=== PATIENT | male | born 1970 | race Caucasian/White ===

== ENCOUNTER 2019-10-09 16:29 | Emergency (ER) | payer MEDICAID ==
[~2019-10-09] VITALS: Ht 172.7 cm; Wt 102.7 kg
--- NOTE | 2019-10-09 17:49 | NUR ---
PT. IS A & O X 4 WITH A GCS OF 15. PT. HAS C/O BILAT LOWER EXTREMITY CELLULITIS ONSET X 10 DAYS AGO. PT. HAS BILAT WEEPING WOUNDS ON BOTH LEGS DRAINING PURULENT DRAINAGE. PT.'S LUNGS ARE CTA. MM ARE PINK AND MOIST WITH PULSES +2 THROUGHOUT. PT.'S ABD. IS SOFT AND ROUND WITH BS + X 4 QUADS. PT. IS AMBULATORY. CAP REFILL IS BRISK, LESS THAN 3 SECONDS. PT. CMS CHECKS ARE INTACT TO BOTH FEET. IV ACCESS ESTABLISHED AND THE PLAN OF CARE WAS DISCUSSED WITH THE PT.
[2019-10-09] MEDS ORDERED: SODIUM CHLORIDE FLUSH 10ML SYR IVF ONE (18:00)
[2019-10-09] MEDS ORDERED: SODIUM CHLORIDE 0.9% 1,000ML IVBOLUS ONE (18:00)
[2019-10-09] MEDS ORDERED: ONDANSETRON 2MG/ML, 2ML IVPush ONE (18:30)
[2019-10-09] MEDS ORDERED: MORPHINE SULFATE 4 MG/ML, 1ML IVPush PRN (18:30)
[2019-10-09] MEDS ORDERED: ONDANSETRON 2MG/ML, 2ML ONE (18:39)
[2019-10-09 18:40] LABS: ALBUMIN 2.3 g/dL (3.4-5.0); ANION GAP 7 mmol/L (5-15); CALCIUM 8.1 mg/dL (8.5-10.1); CHLORIDE 108 mmol/L (98-107); CREATININE 0.92 mg/dL (0.7-1.3)
[2019-10-09] MEDS ORDERED: MORPHINE SULFATE 4 MG/ML, 1ML ONE (18:40)
[2019-10-09 18:44] LABS: BASOPHILS # (AUTO) 0.03 x10^3/uL (0-0.1); BASOPHILS % (AUTO) 0 % (0-1); EOSINOPHILS # (AUTO) 0.14 x10^3/uL (0-0.4); EOSINOPHILS % (AUTO) 1 % (1-7); LYMPHOCYTES # (AUTO) 1.76 x10^3/uL (1-3.4); LYMPHOCYTES % (AUTO) 17 % (22-44); MD NO; MEAN CORPUSCULAR HEMOGLOBIN 30.2 pg (27.5-34.5); MEAN CORPUSCULAR VOLUME 91.6 fL (81-97); MONOCYTES # (AUTO) 1.14 x10^3/uL (0.2-0.8); MONOCYTES % (AUTO) 11 % (2-9); NEUTROPHILS # (AUTO) 7.26 x10^3/uL (1.8-6.8); NEUTROPHILS % (AUTO) 70 % (42-75); PLATELET COUNT 471 x10^3/uL (130-400); RED BLOOD COUNT 3.95 x10^6/uL (4.38-5.82); RED CELL DISTRIBUTION WIDTH 14.5 % (9.4-14.8)
--- NOTE | 2019-10-09 19:04 | NUR ---
REPORT RECEIVED FROM DONNIE NOVA. PLAN OF CARE DISCUSSED.
[2019-10-09] MEDS ORDERED: LIDOCAINE-MPF 1%, 5ML INFIL ONE (19:30)
[2019-10-09] MEDS ORDERED: LIDOCAINE-MPF 1%, 5ML ONE (19:36)
[2019-10-09 20:22] VITALS: BP 122/76
== END 2019-10-09 20:49 | disposition home or self-care (01) ==
LOC: ED 20:40
DX: I83.212 Varicose veins of right lower extremity with both ulcer of calf and inflammation (principal); I83.222 Varicose veins of left lower extremity with both ulcer of calf and inflammation
CPT/HCPCS: 10060; 36415; 73590; 80048; 82040; 83605; 84145; 85025; 87040; 96374; 96375; 99284; J2270; J2405; J7030

== ENCOUNTER 2019-10-12 19:31 | Emergency (ER) | payer MEDICAID ==
[~2019-10-12] VITALS: Ht 175.3 cm; Wt 104.5 kg
[2019-10-12 19:34] VITALS: BP 121/71
--- NOTE | 2019-10-12 20:06 | NUR ---
ADAPTIC DRESSING PLACE OVER WOUND AND WRAPPED WITH KERLIX, PER PROVIDER INSTRUCTIONS.
== END 2019-10-12 20:22 | disposition home or self-care (01) ==
LOC: ED 20:16
DX: Z48.01 Encounter for change or removal of surgical wound dressing (principal)
CPT/HCPCS: 99281; 99282